=== PATIENT | female | born 2000 | race Caucasian/White ===

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

== ENCOUNTER 2022-07-29 10:58 | Emergency (ER) | payer BC, SELFPAY ==
[2022-07-29 12:13] VITALS: BP 92/51; PULSE 102; RESP 18; TEMP 36.8; O2SAT 99
--- NOTE | 2022-07-29 12:27 | ED.URI ---
HPI - URI/Sore Throat General Chief Complaint: Upper Respiratory Infection Stated Complaint: flu like symptoms Time Seen by Provider: 07/29/22 12:28 Source: patient Mode of arrival: ambulatory Limitations: no limitations History of Present Illness HPI Narrative: 22-year-old female presents with mom with complaint of cough, nasal congestion, fever, body aches, chills for 5 days. Is studying for finals and wanted to come in and see if there is anything that she could have to improve her symptoms. Denies nausea vomiting diarrhea. No chest pain or shortness of breath. All systems reviewed and negative except as noted above. Related Data Home Medications Medication Instructions Recorded Confirmed No Home Medications 07/29/22 07/29/22 Allergies Allergy/AdvReac Type Severity Reaction Status Date / Time No Known Allergies Allergy Verified 07/29/22 12:16 Review of Systems Review of Systems: CONSTITUTIONAL: Reports fever, chills, or sweats. EYES: Denies visual changes, redness, or discharge. ENT: reports rhinorrhea, congestion, sore throat, or otalgia. CARDIOVASCULAR: Denies chest pain, palpitations, or edema. RESPIRATORY: reports cough. Denies dyspnea. GASTROINTESTINAL: Denies abdominal pain, nausea, vomiting, or diarrhea. GENITOURINARY: Denies dysuria or hematuria. SKIN: Denies rash or itching. MUSCULOSKELETAL: Denies back pain, joint pain, or myalgia. NEUROLOGIC: Denies headache, numbness, or weakness. PSYCHIATRIC: Denies anxiety or depression. All other systems reviewed are negative, except as documented in HPI. PMFSH Comments At time of signature, agree with nursing past medical, surgical, social and family history. There is no relevant family history pertinent to the presenting complaint. Exam Narrative: GENERAL: This is a well-nourished, well-developed patient. Patient ill-appearing but in no distress. HEAD: normocephalic, atraumatic. EYES: PERRL. Sclera clear/white. Vision is grossly intact. EARS: External ears normal, auditory canals clear and without drainage, TMs normal without perforation. Hearing grossly intact. NOSE: External nose normal with Clear nasal drainage, erythema to both nares. THROAT: Mucous membranes moist, Erythema Posterior pharynx. NECK: Neck supple, non-tender without lymphadenopathy, masses or thyromegaly. CARDIOVASCULAR: Regular rate and rhythm without murmurs, gallops, or rubs. RESPIRATORY: Clear to auscultation. Breath sounds equal bilaterally. No wheezes, rales, or rhonchi. SKIN: warm, Dry, intact with no suspicious lesions or rash, good texture and turgor. NEURO: awake, alert, and oriented to person, place and time. There were no obvious focal neurologic abnormalities. EXTREMITIES: No joint tenderness, effusion, or edema noted. Course Course Level of Care: Express Care Visit Vital Signs Vital signs: Vital Signs Temperature 36.8 C 07/29/22 12:13 Pulse Rate 102 H 07/29/22 12:13 Respiratory Rate 18 07/29/22 12:13 Blood Pressure 92/51 L 07/29/22 12:13 Pulse Oximetry 99 07/29/22 12:13 Oxygen Delivery Room Air 07/29/22 12:13 Temperature 36.8 C 07/29/22 12:13 Pulse Rate 102 H 07/29/22 12:13 Respiratory Rate 18 07/29/22 12:13 Blood Pressure 92/51 L 07/29/22 12:13 Pulse Oximetry 99 07/29/22 12:13 Oxygen Delivery Room Air 07/29/22 12:13 Reviewed MDM - URI/Sore Throat MDM Narrative Medical decision making narrative: Patient is aware of diagnosis, understands and agrees to treatment plan. Anticipatory guidance given. Patient agrees to follow-up as directed and is aware of reasons to seek care at the emergency department. Portions of this record may have been created with voice recognition software Differential Diagnosis Differential diagnosis: Likely upper respiratory infection, viral infection and influenza Lab Data Labs: Influenza A Screen Positive Re
== END 2022-07-29 12:46 | disposition home or self-care (01) ==
PROVIDERS: Emergency Provider Nurse Practitioner Family; PCP Nurse Practitioner Family
DX: J10.1 Influenza due to other identified influenza virus with other respiratory manifestations (principal)
CPT/HCPCS: 87804; 99213; G0463

== ENCOUNTER 2022-09-02 08:04 | Emergency (ER) | payer BC, SELFPAY ==
[2022-09-02 08:30] VITALS: BP 104/63; PULSE 90; RESP 16; TEMP 36.7; O2SAT 98
--- NOTE | 2022-09-02 08:39 | ED.URI ---
HPI - URI/Sore Throat General Chief Complaint: Upper Respiratory Infection Stated Complaint: sorethroat Time Seen by Provider: 09/02/22 08:41 Source: patient, RN notes reviewed and old records reviewed Mode of arrival: ambulatory Limitations: no limitations History of Present Illness HPI Narrative: 22-year-old female presents to [facility] with complaints of sore throat and left lymph node swelling and discomfort since last night. She denies any cough, reports some nasal congestion pain control left neck and jaw region since last night. Patient reports no known fevers but has felt chills and sweats. Patient reports she has been using a humidifier and has been taking ibuprofen for her discomfort. Patient reports recent trip to [facility]. MD elicited complaint: sore throat, nasal congestion and other (left lymph node swelling and left jaw pain) Onset (ago): day(s) (1) Pain scale (0-10): 5 Able to tolerate fluids by mouth: Yes Treatments prior to arrival: ibuprofen and other (humidifer) Related Data Allergies Allergy/AdvReac Type Severity Reaction Status Date / Time No Known Allergies Allergy Verified 09/02/22 08:28 Review of Systems Review of Systems: CONSTITUTIONAL: Reports malaise, chills, sweats, states no known fever. EYES: Denies visual changes, redness, or discharge. ENT: Reports rhinorrhea, congestion, sinus pain, no otalgia positive for sore throat, left lymph node swelling CARDIOVASCULAR: Denies chest pain, palpitations, or edema. RESPIRATORY: No reported cough.? Denies dyspnea. GASTROINTESTINAL: Denies abdominal pain, nausea, vomiting, diarrhea SKIN: Denies rash or itching. MUSCULOSKELETAL: Denies myalgia. NEUROLOGIC: Denies headache. All systems reviewed & are unremarkable except as noted in HPI and below PMFSH Past Medical History Medical History (Updated 09/02/22 @ 09:18 by Ariane Woo NP) Anxiety and depression Surgical History Surgical History (Updated 09/02/22 @ 08:54 by Ariane Woo NP) History of dental surgery Social History Social History (Updated 09/02/22 @ 08:56 by Ariane Woo NP) Smoking status: Never smoker Gender identity (if verbalized by the patient): Female Comments At time of signature, agree with nursing past medical, surgical, social and family history. There is no relevant family history pertinent to the presenting complaint Exam Narrative: GENERAL: Well-appearing, well-nourished, and in no acute distress. HEAD: Normocephalic EYES: PERRLA, conjunctivae clear ENT: Nares clear, turbinates edematous and erythematous, clear discharge. Mucous membranes moist. TM pearly palm with dull light reflex bilaterally; no tragal tenderness. Oropharynx erythematous without lesions. Tonsils not enlarged and without exudate, no drooling, no hoarseness, no trismus, uvula midline.positive left lymphadenopathy with left jaw discomfort NECK: Supple. left sided lymphadenopathy CHEST: Clear to auscultation, breath sounds equal. No wheezing, rhonchi, rales, or stridor. No respiratory distress, speaks in full sentences.SAO2 98% on room air HEART: Regular rate and rhythm. No murmur heard. SKIN: Warm, dry, no rash. NEURO: Alert and oriented x3. PSYCH: Normal mood and affect Course Course Emergency Course: Patient is aware of diagnosis, understands and agrees to treatment plan.? Anticipatory guidance given.? Patient agrees to follow-up as directed and is aware of reasons to seek care at the emergency department. Portions of this record may have been created with voice recognition software Level of Care: Express Care Visit Vital Signs Vital signs: Vital Signs Temperature 36.7 C 09/02/22 08:30 Pulse Rate 90 09/02/22 08:30 Respiratory Rate 16 09/02/22 08:30 Blood Pressure 104/63 09/02/22 08:30 Pulse Oximetry 98 09/02/22 08:30 Oxygen Delivery Room Air 09/02/22 08:30 Temperature 36.7 C 09/02/22 08:30 Pulse Rate 9
== END 2022-09-02 09:22 | disposition home or self-care (01) ==
PROVIDERS: Emergency Provider Registered Nurse; PCP Nurse Practitioner Family
DX: R59.0 Localized enlarged lymph nodes (principal); J02.9 Acute pharyngitis, unspecified
CPT/HCPCS: 36416; 86308; 87081; 87880; 99213; G0463